=== PATIENT | male | born 1965 | race Caucasian/White ===

== ENCOUNTER 2016-08-09 14:22 | Inpatient (IN) | payer OTHER ==
[2016-08-09 14:48] VITALS: BMI 31.9
--- NOTE | 2016-08-09 17:15 | HP ---
CIWA Score - CIWA Score Nausea/Vomitin Muscle Tremors: 4-Moderate,w/Arms Extend Anxiety: 4-Mod. Anxious/Guarded Agitation: 4-Moderately Restless Paroxysmal Sweats: 1-Minimal Palms Moist Orientation: 3-Disoriented Date>2 days Tacttile Disturbances: 0-None Auditory Disturbances: 0-None Visual Disturbances: 0-None Headache: 0-None Present CIWA-Ar Total Score: 18 Admission ROS BHS - HPI Chief Complaint: withdrawal sx Allergies/Adverse Reactions: Allergies Allergy/AdvReac Type Severity Reaction Status Date / Time No Known Allergies Allergy Verified 08/09/16 15:51 History of Present Illness: 50 years old male with long history of alcohol dependence has hypertension hypercholesterolemia and hypothyroid, denies psychiatric issue is admitted to detox Exam Limitations: No Limitations - Ebola screening Have you traveled outside of the country in the last 21 days: No Have you had contact with anyone from an Ebola affected area: No Have you been sick,other than usual withdrawal symptoms: No Do you have a fever: No - Review of Systems Constitutional: Chills, Changes in sleep, Weight Stable EENT: reports: No Symptoms Reported Respiratory: reports: No Symptoms reported Cardiac: reports: No Symptoms Reported GI: reports: Nausea, Poor Fluid Intake, Vomiting, Indigestion, Abdominal cramping : reports: No Symptoms Reported Musculoskeletal: reports: No Symptoms Reported Integumentary: reports: No Symptoms Reported Neuro: reports: Tremors Endocrine: reports: Unexplained Weight Gain Hematology: reports: No Symptoms Reported Psychiatric: reports: Judgement Intact, Mood/Affect Appropiate, Orientated x3 Other Systems: Reviewed and Negative Patient History - Patient Medical History Hx Anemia: No Hx Asthma: No Hx Chronic Obstructive Pulmonary Disease (COPD): No Hx Cancer: No Hx Cardiac Disorders: No Hx Congestive Heart Failure: No Hx Hypertension: Yes (on meds) Hx Hypercholesterolemia: Yes Hx Pacemaker: No HX Cerebrovascular Accident: No Hx Seizures: No Hx Dementia: No Hx Diabetes: Yes (borderline) Hx Gastrointestinal Disorders: No Hx Liver Disease: No Hx Genitourinary Disorders: No Hx Sexually Transmitted Disorders: No Hx Renal Disease (ESRD): No Hx Thyroid Disease: No Hx Human Immunodeficiency Virus (HIV): No Hx Hepatitis C: No Hx Depression: Yes Hx Suicide Attempt: No Hx Bipolar Disorder: No Hx Schizophrenia: No - Patient Surgical History Past Surgical History: No Hx Neurologic Surgery: No Hx Cataract Extraction: No Hx Cardiac Surgery: No Hx Lung Surgery: No Hx Breast Surgery: No Hx Breast Biopsy: No Hx Abdominal Surgery: No Hx Appendectomy: No Hx Cholecystectomy: No Hx Genitourinary Surgery: No Hx Orthopedic Surgery: No - PPD History Previous Implant?: Yes Documented Results: Positive w/o proof Implanted On Prior R Admission?: No PPD to be Administered?: No - Smoking Cessation Smoking history: Never smoked Have you smoked in the past 12 months: No Hx Chewing Tobacco Use: No Initiated information on smoking cessation: No - Substance & Tx. History Hx Alcohol Use: Yes Hx Substance Use: No Substance Use Type: Alcohol Hx Substance Use Treatment: Yes - Substances Abused Alcohol Route: Oral Frequency: Daily Amount used: vodka 5pts 10beers Age of first use: 19 Date of Last Use: 08/09/16 Family Disease History - Family Disease History Family Disease History: Heart Disease: Mother, Other: Father (no contact) Admission Physical Exam S - Vital Signs Vital Signs: Vital Signs - 24 hr 08/09/16 14:46 Temperature 98.6 F Pulse Rate 71 Respiratory 18 Rate Blood Pressure 137/99 - Physical General Appearance: Yes: Nourished, Appropriately Dressed, Moderate Distress, Alcohol on Breath, Tremorous, Irritable, Sweating, Anxious HEENTM: Yes: Hearing grossly Normal, Normal ENT Inspection, Normocephalic, Normal Voice Respiratory: Yes: Chest Non-Tender, Lungs Clear, Normal Breath Sounds, No Respiratory Distress, No Accessory Muscle Use Neck: Yes: Supple, Trachea in good position Breast: Yes: Breasts Symetrical Cardiology: Yes: Regular Rhythm, Regular Rate, S1, S2 Abdominal: Yes: Non Tender, Soft Genitourinary: Yes: Within Normal Limits Back: Yes: Normal Inspection Musculoskeletal: Yes: full range of Motion, Gait Steady Extremities: Yes: Normal Inspection, Normal Range of Motion, Non-Tender, Tremors Neurological: Yes: Alert, Motor Strength 5/5, Normal Mood/Affect, Normal Response Integumentary: Yes: Warm Lymphatic: Yes: Within Normal Limits - Diagnostic (1) Alcohol dependence with uncomplicated withdrawal Current Visit: Yes Status: Acute (2) Hypertension Current Visit: Yes Status: Acute Qualifiers: Hypertension type: essential hypertension Qualified Code(s): I10 - Essential (primary) hypertension (3) Hypercholesteremia Current Visit: Yes Status: Acute (4) Hypothyroidism Current Visit: Yes Status: Acute Qualifiers: Hypothyroidism type: acquired Qualified Code(s): E03.9 - Hypothyroidism, unspecified (5) Positive PPD, treated Current Visit: Yes Status: Resolved Comment: chest x ray pending Cleared for Admission [facility] - Detox or Rehab [facility] Level of Care: Medically Managed Detox Regimen/Protocol: Librium [facility] Breath Alcohol Content Breath Alcohol Content: 0.266 Urine Drug Screen - Control Is Test Valid: Yes - Results Drug Screen Negative: Yes
[2016-08-09] MEDS ORDERED: IBUPROFEN 400 MG TABLET (FP) PO PRN (17:20)
[2016-08-09] MEDS ORDERED: MAGNESIUM CITRATE 300 ML BOTTLE PO PRN (17:20)
[2016-08-09] MEDS ORDERED: hydrOXYzine PAMOATE 50 MG CAPSULE (FP) PO PRN (17:20)
[2016-08-09] MEDS ORDERED: ACETAMINOPHEN 325 MG TABLET (FP) PO PRN (17:20)
[2016-08-09] MEDS ORDERED: P-EPHED 60MG/TRIPROLIDI 2.5MG TABLET PO PRN (17:20)
[2016-08-09] MEDS ORDERED: guaiFENesin/D-METHORPHAN HB 10 ML UNIT-DOSE CUPS PO PRN (17:20)
[2016-08-09] MEDS ORDERED: chlordiazePOXIDE HCL 25 MG CAPSULE PO PRN (17:20)
[2016-08-09] MEDS ORDERED: MENTHOL/PHENOL 1 EACH UD MM PRN (17:20)
[2016-08-09] MEDS ORDERED: LOPERAMIDE HCL 2 MG CAPSULE PO PRN (17:20)
[2016-08-09] MEDS ORDERED: MAGNESIUM HYDROX 2400MG/30ML ORAL SUSPENSION 30 ML CUP PO PRN (17:20)
[2016-08-09] MEDS ORDERED: chlordiazePOXIDE HCL 25 MG CAPSULE PO ONE (17:45)
[2016-08-09] MEDS: THIAMINE HCL 100 MG TABLET (FP) PO SCH (22:23)
[2016-08-09] MEDS: chlordiazePOXIDE HCL 25 MG CAPSULE PO SCH (22:24)
[2016-08-09] MEDS: ATORVASTATIN CA 20 MG TABLET (FP) PO SCH (22:24)
[2016-08-09 23:08] LABS: URINE APPEARANCE CLEAR; URINE BILIRUBIN NEGATIVE (NEGATIVE); URINE COLOR STRAW; URINE GLUCOSE (UA) NEGATIVE (NEGATIVE); URINE KETONE NEGATIVE (NEGATIVE); URINE LEUK ESTERASE NEGATIVE (NEGATIVE); URINE NITRITE NEGATIVE (NEGATIVE); URINE PROTEIN NEGATIVE (NEGATIVE); URINE UROBILINOGEN NEGATIVE E.U./dl (0.2-1.0)
[2016-08-09 23:15] LABS: URINE BLOOD 1+ (NEGATIVE)
[2016-08-09 23:18] LABS: URINE BACTERIA RARE /hpf (NONE SEEN); URINE MUCUS RARE; URINE RBC <1 /hpf (0-3); URINE WBC <1 /hpf (3-5)
[2016-08-10] MEDS ORDERED: LEVOTHYROXINE NA 25 MCG TABLET (FP) ONE (05:05)
[2016-08-10] MEDS ORDERED: LEVOTHYROXINE NA 100 MCG TABLET (FP) ONE (05:05)
[2016-08-10] MEDS: chlordiazePOXIDE HCL 25 MG CAPSULE PO SCH ×4 (06:17→22:22)
[2016-08-10] MEDS: LEVOTHYROXINE 100 MCG, LEVOTHYROXINE 50 MCG PO SCH (06:17)
[2016-08-10] MEDS ORDERED: LEVOTHYROXINE NA 150 MCG TABLET PO SCH (07:00)
[2016-08-10 10:21] LABS: MCH 30.9 pg (25.7-33.7); MCHC 33.8 g/dl (32.0-35.9); MEAN CELL VOLUME 91.4 fl (80-96); MEAN PLT VOLUME 9.8 fl (7.5-11.1); PLATELET COUNT 123 K/MM3 (134-434); RDW 12.6 % (11.9-15.9); WHITE BLOOD COUNT 4.3 K/mm3 (4.0-10.0)
[2016-08-10] MEDS: PRENATAL VITAMINS W/ FOLIC ACID TABLET (FP) PO SCH (10:36)
[2016-08-10] MEDS: HYDROCHLOROTHIAZIDE 12.5 MG CAPSULE (FP) PO SCH (10:36)
[2016-08-10 10:46] LABS: ALBUMIN 4.2 g/dl (3.4-5.0); ALK PHOS 56 U/L (45-117); ANION GAP 10 (8-16); BILIRUBIN,TOTAL 0.9 mg/dL (0.2-1.0); CALCIUM 8.6 mg/dL (8.5-10.1); CO2 28 mmol/L (21-32); CREATININE 0.7 mg/dL (0.7-1.3); GLUCOSE,RANDOM 114 mg/dL (74-106); SGOT/AST 49 U/L (15-37); SGPT/ALT 46 U/L (12-78); TOT PROT 8.1 g/dl (6.4-8.2)
--- NOTE | 2016-08-10 11:26 | PN ---
S CIWA - CIWA Score Nausea/Vomitin-No Nausea/No Vomiting Muscle Tremors: 3 Anxiety: 3 Agitation: 4-Moderately Restless Paroxysmal Sweats: 3 Orientation: 0-Oriented Tacttile Disturbances: 0-None Auditory Disturbances: 0-None Visual Disturbances: 0-None Headache: 0-None Present CIWA-Ar Total Score: 13 BHS Progress Note (SOAP) Subjective: ANXIETY,TREMORS,SWEATING,INTERRUPTED SLEEP,RESTLESS Objective: 08/10/16 11:24 Vital Signs - 8 hr 08/10/16 08/10/16 06:30 09:46 Temperature 96.4 F L 98.1 F Pulse Rate 64 107 H Respiratory 18 18 Rate Blood Pressure 128/78 143/88 Laboratory Tests 08/09/16 08/09/16 08/10/16 16:13 22:19 06:00 WBC 4.3 RBC 4.95 Hgb 15.3 Hct 45.2 MCV 91.4 MCHC 33.8 RDW 12.6 Plt Count 123 L MPV 9.8 Sodium Potassium Chloride Carbon Dioxide Anion Gap BUN Creatinine Creat Clearance w eGFR POC Glucometer 118 Random Glucose Calcium Total Bilirubin AST ALT Alkaline Phosphatase Total Protein Albumin TSH Urine Color Straw Urine Appearance Clear Urine pH 6.0 Ur Specific [place] 1.006 Urine Protein Negative Urine Glucose (UA) Negative Urine Ketones Negative Urine Blood 1+ H Urine Nitrite Negative Urine Bilirubin Negative Urine Urobilinogen Negative Ur Leukocyte Esterase Negative Urine RBC <1 Urine WBC <1 Ur Epithelial Cells Rare Urine Bacteria Rare Urine Mucus Rare 08/10/16 08/10/16 06:00 06:20 WBC RBC Hgb Hct MCV MCHC RDW Plt Count MPV Sodium 140 Potassium 3.9 Chloride 102 Carbon Dioxide 28 Anion Gap 10 BUN 8 Creatinine 0.7 Creat Clearance w eGFR > 60 POC Glucometer 102 Random Glucose 114 H Calcium 8.6 Total Bilirubin 0.9 AST 49 H ALT 46 Alkaline Phosphatase 56 Total Protein 8.1 Albumin 4.2 TSH 69.40 H Urine Color Urine Appearance Urine pH Ur Specific [place] Urine Protein Urine Glucose (UA) Urine Ketones Urine Blood Urine Nitrite Urine Bilirubin Urine Urobilinogen Ur Leukocyte Esterase Urine RBC Urine WBC Ur Epithelial Cells Urine Bacteria Urine Mucus LABS NOTED,TSH HIGH BECAUSE PT. IS NON-COMPLIANT WITH MEDS. Assessment: 08/10/16 11:25 WITHDRAWAL SX HYPOTHYROIDISM Plan: CONTINUE DETOX
[2016-08-10] MEDS: MAG HYDROX/AL HYDROX/SIMETH 30 ML UNIT-DOSE CUP PO PRN ×2 (13:59→21:03)
--- NOTE | 2016-08-10 15:39 | CONSULT ---
[facility] Psychiatric Consult - Data Date of interview: 08/10/16 Admission source: [facility] Identifying data: This is 50 years old finn[place] talking male with no psychiatric hospitalization history intoxicated with : Alcohol Substance Abuse History: - Smoking Cessation. Smoking history: Never smoked. Have you smoked in the past 12 months: No. Hx Chewing Tobacco Use: No. Initiated information on smoking cessation: No. - Substance & Tx. History. Hx Alcohol Use: Yes. Hx Substance Use: No. Substance Use Type: Alcohol. Hx Substance Use Treatment: Yes. - Substances Abused. Alcohol. Route: Oral. Frequency: Daily. Amount used: vodka 5pts 10beers. Age of first use: 19. Date of Last Use: 08/09/16 Medical History: Chest pain history, HTN, PPD+ History, Psychiatric History: Denies past pscyhiatric history, reports depression and anxiety after Alcohol intake Physical/Sexual Abuse/Trauma History: Denies Additional Comment: Observation. Detox Unit Care Protocol Mental Status Exam - Mental Status Exam Alert and Oriented to: Person Cognitive Function: Fair Patient Appearance: Unkempt Mood: Sad, Anxious Affect: Flat Patient Behavior: Sedated Speech Pattern: Delayed Voice Loudness: Mildly Soft/Quiet Thought Process: Circumstantial Thought Disorder: Being Controlled Hallucinations: Denies Suicidal Ideation: Denies Homicidal Ideation: Denies Insight/Judgement: Fair Sleep: Difficulty falling asleep Appetite: Weight gain Muscle strength/Tone: Normal Gait/Station: Normal Additional Comments: Observation. Detox Unit Care Protocol Psychiatric Findings - Problem List ([place] 1, 2,3) (1) Alcohol dependence with uncomplicated withdrawal Current Visit: Yes Status: Acute (2) Alcohol abuse Current Visit: No Status: Acute (3) Alcohol-induced anxiety disorder Current Visit: Yes Status: Acute (4) Alcohol-induced mood disorder Current Visit: Yes Status: Suspected - Initial Treatment Plan Initial Treatment Plan: Observation. Detox Unit Care Protocol
[2016-08-10 19:44] LABS: HIV 1 & 2 AB NEGATIVE; HIV 1 AGp24 NEGATIVE
[2016-08-10] MEDS: THIAMINE HCL 100 MG TABLET (FP) PO SCH (22:22)
[2016-08-10] MEDS: ATORVASTATIN CA 20 MG TABLET (FP) PO SCH (22:22)
[2016-08-10] MEDS: diphenhydrAMINE HCL 50 MG CAPSULE PO PRN (22:22)
[2016-08-11] MEDS: chlordiazePOXIDE HCL 25 MG CAPSULE PO SCH ×3 (06:11→17:01)
[2016-08-11] MEDS ORDERED: LEVOTHYROXINE NA 25 MCG TABLET (FP) ONE (07:59)
[2016-08-11] MEDS ORDERED: LEVOTHYROXINE NA 100 MCG TABLET (FP) ONE (07:59)
[2016-08-11] MEDS: LEVOTHYROXINE 100 MCG, LEVOTHYROXINE 50 MCG PO SCH (08:01)
[2016-08-11] MEDS: MAG HYDROX/AL HYDROX/SIMETH 30 ML UNIT-DOSE CUP PO PRN ×2 (09:38→17:52)
[2016-08-11] MEDS: HYDROCHLOROTHIAZIDE 12.5 MG CAPSULE (FP) PO SCH (10:36)
[2016-08-11] MEDS: PRENATAL VITAMINS W/ FOLIC ACID TABLET (FP) PO SCH (10:36)
--- NOTE | 2016-08-11 14:57 | PN ---
[facility] CIWA - CIWA Score Nausea/Vomitin-No Nausea/No Vomiting Muscle Tremors: 3 Anxiety: 3 Agitation: 2 Paroxysmal Sweats: 2 Orientation: 0-Oriented Tacttile Disturbances: 0-None Auditory Disturbances: 0-None Visual Disturbances: 0-None Headache: 0-None Present CIWA-Ar Total Score: 10 [facility] Progress Note (SOAP) Subjective: ANXIETY,SWEATING,INTERRUPTED SLEEP,RESTLESS Objective: 08/11/16 14:51 Vital Signs - 8 hr 08/11/16 09:40 Temperature 96.4 F L Pulse Rate 65 Respiratory 18 Rate Blood Pressure 151/89 Laboratory Tests 08/09/16 08/09/16 08/09/16 10:20 16:13 22:19 WBC RBC Hgb Hct MCV MCHC RDW Plt Count MPV Sodium Potassium Chloride Carbon Dioxide Anion Gap BUN Creatinine Creat Clearance w eGFR POC Glucometer 118 Random Glucose Calcium Total Bilirubin AST ALT Alkaline Phosphatase Total Protein Albumin TSH Urine Color Straw Urine Appearance Clear Urine pH 6.0 Ur Specific [place] 1.006 Urine Protein Negative Urine Glucose (UA) Negative Urine Ketones Negative Urine Blood 1+ H Urine Nitrite Negative Urine Bilirubin Negative Urine Urobilinogen Negative Ur Leukocyte Esterase Negative Urine RBC <1 Urine WBC <1 Ur Epithelial Cells Rare Urine Bacteria Rare Urine Mucus Rare RPR Titer HIV 1&2 Antibody Screen Negative HIV P24 Antigen Negative 08/10/16 08/10/16 08/10/16 06:00 06:00 06:00 WBC 4.3 RBC 4.95 Hgb 15.3 Hct 45.2 MCV 91.4 MCHC 33.8 RDW 12.6 Plt Count 123 L MPV 9.8 Sodium 140 Potassium 3.9 Chloride 102 Carbon Dioxide 28 Anion Gap 10 BUN 8 Creatinine 0.7 Creat Clearance w eGFR > 60 POC Glucometer Random Glucose 114 H Calcium 8.6 Total Bilirubin 0.9 AST 49 H ALT 46 Alkaline Phosphatase 56 Total Protein 8.1 Albumin 4.2 TSH 69.40 H Urine Color Urine Appearance Urine pH Ur Specific [place] Urine Protein Urine Glucose (UA) Urine Ketones Urine Blood Urine Nitrite Urine Bilirubin Urine Urobilinogen Ur Leukocyte Esterase Urine RBC Urine WBC Ur Epithelial Cells Urine Bacteria Urine Mucus RPR Titer Nonreactive HIV 1&2 Antibody Screen HIV P24 Antigen 08/10/16 08/11/16 06:20 06:10 WBC RBC Hgb Hct MCV MCHC RDW Plt Count MPV Sodium Potassium Chloride Carbon Dioxide Anion Gap BUN Creatinine Creat Clearance w eGFR POC Glucometer 102 97 Random Glucose Calcium Total Bilirubin AST ALT Alkaline Phosphatase Total Protein Albumin TSH Urine Color Urine Appearance Urine pH Ur Specific [place] Urine Protein Urine Glucose (UA) Urine Ketones Urine Blood Urine Nitrite Urine Bilirubin Urine Urobilinogen Ur Leukocyte Esterase Urine RBC Urine WBC Ur Epithelial Cells Urine Bacteria Urine Mucus RPR Titer HIV 1&2 Antibody Screen HIV P24 Antigen LABS NOTED Assessment: 08/11/16 14:51 WITHDRAWAL SX. Plan: CONTINUE DETOX
[2016-08-11] MEDS: chlordiazePOXIDE 5 MG CAPSULE PO SCH (22:11)
[2016-08-11] MEDS: THIAMINE HCL 100 MG TABLET (FP) PO SCH (22:11)
[2016-08-11] MEDS: ATORVASTATIN CA 20 MG TABLET (FP) PO SCH (22:11)
[2016-08-11] MEDS: diphenhydrAMINE HCL 50 MG CAPSULE PO PRN (22:12)
[2016-08-12] MEDS: chlordiazePOXIDE 5 MG CAPSULE PO SCH (05:58)
[2016-08-12] MEDS ORDERED: LEVOTHYROXINE NA 25 MCG TABLET (FP) ONE (06:00)
[2016-08-12] MEDS ORDERED: LEVOTHYROXINE NA 100 MCG TABLET (FP) ONE (06:00)
[2016-08-12] MEDS: LEVOTHYROXINE 100 MCG, LEVOTHYROXINE 50 MCG PO SCH (06:04)
[2016-08-12 06:33] VITALS: BP 140/87; PULSE 60; TEMP 96.1
--- NOTE | 2016-08-12 11:26 | DS ---
[facility] Detox Discharge Summary Admission Date: 08/09/16 Discharge Date: 08/12/16 - History Present History: Alcohol Dependence Pertinent Past History: Hypertension Hyperlipidemia Hypothyroid - Physical Exam Results Vital Signs: Vital Signs Temperature 96.1 F L 08/12/16 06:33 Pulse Rate 60 08/12/16 06:33 Respiratory Rate 18 08/12/16 06:33 Blood Pressure 140/87 08/12/16 06:33 O2 Sat by Pulse Oximetry (%) Pertinent Admission Physical Exam Findings: withdrawal symptoms Laboratory Last Values WBC 4.3 K/mm3 (4.0-10.0) 08/10/16 06:00 RBC 4.95 M/mm3 (4.00-5.60) 08/10/16 06:00 Hgb 15.3 GM/dL (11.7-16.9) 08/10/16 06:00 Hct 45.2 % (35.4-49) 08/10/16 06:00 MCV 91.4 fl (80-96) 08/10/16 06:00 MCHC 33.8 g/dl (32.0-35.9) 08/10/16 06:00 RDW 12.6 % (11.9-15.9) 08/10/16 06:00 Plt Count 123 K/MM3 (134-434) L 08/10/16 06:00 MPV 9.8 fl (7.5-11.1) 08/10/16 06:00 Sodium 140 mmol/L (136-145) 08/10/16 06:00 Potassium 3.9 mmol/L (3.5-5.1) 08/10/16 06:00 Chloride 102 mmol/L (98-107) 08/10/16 06:00 Carbon Dioxide 28 mmol/L (21-32) 08/10/16 06:00 Anion Gap 10 (8-16) 08/10/16 06:00 BUN 8 mg/dL (7-18) 08/10/16 06:00 Creatinine 0.7 mg/dL (0.7-1.3) 08/10/16 06:00 Creat Clearance w eGFR > 60 (>60) 08/10/16 06:00 POC Glucometer 104 UNITS (()) 08/12/16 05:58 Random Glucose 114 mg/dL (74-106) H 08/10/16 06:00 Calcium 8.6 mg/dL (8.5-10.1) 08/10/16 06:00 Total Bilirubin 0.9 mg/dL (0.2-1.0) 08/10/16 06:00 AST 49 U/L (15-37) H 08/10/16 06:00 ALT 46 U/L (12-78) 08/10/16 06:00 Alkaline Phosphatase 56 U/L (45-117) 08/10/16 06:00 Total Protein 8.1 g/dl (6.4-8.2) 08/10/16 06:00 Albumin 4.2 g/dl (3.4-5.0) 08/10/16 06:00 TSH 69.40 uIU/ml (0.358-3.74) H 08/10/16 06:00 Urine Color Straw 08/09/16 22:19 Urine Appearance Clear 08/09/16 22:19 Urine pH 6.0 (5.0-8.0) 08/09/16 22:19 Ur Specific [place] 1.006 (1.001-1.035) 08/09/16 22:19 Urine Protein Negative (NEGATIVE) 08/09/16 22:19 Urine Glucose (UA) Negative (NEGATIVE) 08/09/16 22:19 Urine Ketones Negative (NEGATIVE) 08/09/16 22:19 Urine Blood 1+ (NEGATIVE) H 08/09/16 22:19 Urine Nitrite Negative (NEGATIVE) 08/09/16 22:19 Urine Bilirubin Negative (NEGATIVE) 08/09/16 22:19 Urine Urobilinogen Negative E.U./dl (0.2-1.0) 08/09/16 22:19 Ur Leukocyte Esterase Negative (NEGATIVE) 08/09/16 22:19 Urine RBC <1 /hpf (0-3) 08/09/16 22:19 Urine WBC <1 /hpf (3-5) 08/09/16 22:19 Ur Epithelial Cells Rare /hpf (FEW) 08/09/16 22:19 Urine Bacteria Rare /hpf (NONE SEEN) 08/09/16 22:19 Urine Mucus Rare 08/09/16 22:19 RPR Titer Nonreactive (NONREACTIVE) 08/10/16 06:00 HIV 1&2 Antibody Screen Negative 08/09/16 10:20 HIV P24 Antigen Negative 08/09/16 10:20 labs review - Medication Discharge Medications: Ambulatory Orders Hydrochlorothiazide [Hctz -] 12.5 mg PO DAILY 04/01/16 Levothyroxine [Synthroid -] 150 mcg PO DAILY 04/01/16 Simvastatin [Zocor -] 20 mg PO HS 04/01/16 - Diagnosis (1) Alcohol dependence with uncomplicated withdrawal Status: Acute (2) Alcohol-induced anxiety disorder Status: Acute (3) Hypercholesteremia Status: Acute (4) Hypertension Status: Chronic Qualifiers: Hypertension type: essential hypertension Qualified Code(s): I10 - Essential (primary) hypertension (5) Hypothyroidism Status: Acute Qualifiers: Hypothyroidism type: acquired Qualified Code(s): E03.9 - Hypothyroidism, unspecified (6) Alcohol-induced mood disorder Status: Suspected - AMA Did Patient Leave Against Medical Advice: Yes
[2016-08-12] MEDS ORDERED: chlordiazePOXIDE HCL 10 MG CAPSULE PO SCH (23:00)
== END 2016-08-12 09:52 | disposition left against medical advice (07) | DRG 770 ==
LOC: YASAS 14:22 → Y3N 16:28
PROVIDERS: ADMIT Internal Medicine; ATTEND Internal Medicine
PROC: HZ2ZZZZ Detoxification Services for Substance Abuse Treatment (ICD-10-PCS; principal; 2016-08-09)
DX: F10.230 Alcohol dependence with withdrawal, uncomplicated (principal); F10.24 Alcohol dependence with alcohol-induced mood disorder; F10.280 Alcohol dependence with alcohol-induced anxiety disorder; I10 Essential (primary) hypertension; E03.9 Hypothyroidism, unspecified; E78.00 Pure hypercholesterolemia, unspecified; R73.03 Prediabetes; R76.11 Nonspecific reaction to tuberculin skin test without active tuberculosis
CPT/HCPCS: 36415; 71020-TC; 80053; 81003; 81015; 84443; 85027; 86593; 87389; 93005; 93010

== ENCOUNTER 2023-03-13 21:02 | Observation (INO) | payer OTHER ==
[2023-03-13 22:58] LABS: BASO % 1.1 % (0-2.0); EOS % 5.7 % (0-4.5); HEMATOCRIT 41.8 % (35.4-49); HEMOGLOBIN 14.5 GM/dL (11.7-16.9); LYMPH % 42.2 % (8-40); MCH 30.7 pg (25.7-33.7); MCHC 34.7 g/dl (32.0-35.9); MEAN CELL VOLUME 88.5 fl (80-96); MEAN PLT VOLUME 8.4 fl (7.5-11.1); PLATELET COUNT 143 10^3/uL (134-434); RBC 4.72 M/mm3 (4.00-5.60); RDW 13.5 % (11.9-15.9); WHITE BLOOD COUNT 6.2 K/mm3 (4.0-10.0)
[2023-03-13 23:24] LABS: BLOOD UREA NITROGEN 4.8 mg/dL (7-18); CALCIUM 8.8 mg/dL (8.5-10.1)
[2023-03-13 23:28] LABS: CREATININE 0.8 mg/dL (0.55-1.3)
[2023-03-13 23:29] LABS: BILIRUBIN,TOTAL 0.5 mg/dL (0.2-1)
[2023-03-14 01:03] LABS: INR 0.96 (0.83-1.09); PROTHROMBIN TIME (PATIENT) 11.1 SEC (9.7-13.0)
[2023-03-14] MEDS ORDERED: ACETAMINOPHEN INJECTION 100 ML IVPB ONE (05:08)
[2023-03-14] MEDS ORDERED: ACETAMINOPHEN 1000 MG/100 ML BAG IVPB ONE (05:08)
[2023-03-14] MEDS ORDERED: DOCUSATE SODIUM 100 MG CAPSULE (FP) PO PRN (10:14)
[2023-03-14] MEDS ORDERED: LORazepam 2 MG/ML SDV VIAL IVPB PRN (10:19)
[2023-03-14] MEDS ORDERED: ACETAMINOPHEN 1000 MG/100 ML BAG IVPB PRN (10:23)
[2023-03-14] MEDS: FOLIC ACID 1 MG TABLET (FP) PO SCH (11:39)
[2023-03-14] MEDS: THIAMINE HCL 100 MG TABLET (FP) PO SCH (11:39)
[2023-03-14] MEDS: MULTIVITAMINS (DAILY MVI) TABLET (FP) PO SCH (11:39)
[2023-03-14 18:31] VITALS: BMI 29.7
[2023-03-15 08:58] LABS: HEMATOCRIT 40.3 % (35.4-49); HEMOGLOBIN 13.7 GM/dL (11.7-16.9); MCH 30.8 pg (25.7-33.7); MEAN CELL VOLUME 90.4 fl (80-96); MEAN PLT VOLUME 9.2 fl (7.5-11.1); PLATELET COUNT 124 10^3/uL (134-434); RBC 4.45 M/mm3 (4.00-5.60); RDW 13.7 % (11.9-15.9); WHITE BLOOD COUNT 5.9 K/mm3 (4.0-10.0)
[2023-03-15 09:37] LABS: CALCIUM 9.3 mg/dL (8.5-10.1)
[2023-03-15 09:38] LABS: MAGNESIUM 2.3 mg/dL (1.8-2.4)
[2023-03-15 09:41] LABS: CREATININE 0.9 mg/dL (0.55-1.3)
[2023-03-15] MEDS: MULTIVITAMINS (DAILY MVI) TABLET (FP) PO SCH (09:42)
[2023-03-15] MEDS: FOLIC ACID 1 MG TABLET (FP) PO SCH (09:42)
[2023-03-15] MEDS: THIAMINE HCL 100 MG TABLET (FP) PO SCH (09:42)
[2023-03-15] MEDS ORDERED: ACETAMINOPHEN 325 MG TABLET (FP) PO PRN (10:14)
[2023-03-15 20:58] LABS: EPI CELLS 1 /uL (0-25.1); HYALINE CASTS 0 /uL (0-3.1); PH,URINE 6.5 (5.0-8.0); URINE APPEARANCE CLEAR; URINE BACTERIA 0 /uL (0-1359); URINE BILIRUBIN NEGATIVE (NEGATIVE); URINE COLOR YELLOW; URINE GLUCOSE (UA) NEGATIVE (NEGATIVE); URINE KETONE NEGATIVE (NEGATIVE); URINE LEUK ESTERASE NEGATIVE (NEGATIVE); URINE NITRITE NEGATIVE (NEGATIVE); URINE PROTEIN NEGATIVE (NEGATIVE); URINE RBC 12 /uL (0-23.9); URINE UROBILINOGEN 0.2 mg/dL (0.2-1.0); URINE WBC 0 /uL (0-25.8)
[2023-03-15 20:59] LABS: COCAINE, UR NEGATIVE (NEGATIVE); URINE AMPHETAMINES NEGATIVE (NEGATIVE)
[2023-03-15 21:01] LABS: OPIATES, URI NEGATIVE (NEGATIVE); PHENCYCLIDINE,URINE NEGATIVE (NEGATIVE); URINE BARBITURATES NEGATIVE (NEGATIVE); URINE BENZODIAZEPINES NEGATIVE (NEGATIVE)
[2023-03-15 21:05] LABS: METHADONE, UR NEGATIVE (NEGATIVE)
[2023-03-16] MEDS: MULTIVITAMINS (DAILY MVI) TABLET (FP) PO SCH (09:28)
[2023-03-16] MEDS: THIAMINE HCL 100 MG TABLET (FP) PO SCH (09:28)
[2023-03-16] MEDS: FOLIC ACID 1 MG TABLET (FP) PO SCH (09:28)
[2023-03-17] MEDS: THIAMINE HCL 100 MG TABLET (FP) PO SCH (09:24)
[2023-03-17] MEDS: MULTIVITAMINS (DAILY MVI) TABLET (FP) PO SCH (09:25)
[2023-03-17] MEDS: FOLIC ACID 1 MG TABLET (FP) PO SCH (09:25)
[2023-03-18] MEDS: LEVOTHYROXINE NA 150 MCG TABLET PO SCH (08:36)
[2023-03-18] MEDS: MULTIVITAMINS (DAILY MVI) TABLET (FP) PO SCH (09:07)
[2023-03-18] MEDS: FOLIC ACID 1 MG TABLET (FP) PO SCH (09:07)
[2023-03-18] MEDS: THIAMINE HCL 100 MG TABLET (FP) PO SCH (09:07)
[2023-03-18] MEDS: methylPREDNISolone 4 MG TABLET PO SCH ×2 (17:06→21:21)
[2023-03-19] MEDS: MULTIVITAMINS (DAILY MVI) TABLET (FP) PO SCH (09:12)
[2023-03-19] MEDS: FOLIC ACID 1 MG TABLET (FP) PO SCH (09:12)
[2023-03-19] MEDS: LEVOTHYROXINE NA 150 MCG TABLET PO SCH (09:12)
[2023-03-19] MEDS: THIAMINE HCL 100 MG TABLET (FP) PO SCH (09:12)
[2023-03-19] MEDS: methylPREDNISolone 4 MG TABLET PO SCH ×2 (09:12→14:08)
[2023-03-19 09:20] VITALS: BP 134/78; PULSE 61; RESP 15; TEMP 98.6
== END 2023-03-19 14:33 | disposition home or self-care (01) ==
LOC: JERFT 21:02 → UNDOADMOB 03-14 02:24 → INTOOBSV 03-14 02:24 → JERBED 03-14 02:24 → J8W 03-14 17:59
PROVIDERS: ADMIT Internal Medicine; ATTEND Family Medicine
PROC: 3E033NZ Introduction of Analgesics, Hypnotics, Sedatives into Peripheral Vein, Percutaneous Approach (ICD-10-PCS; principal; 2023-03-14)
DX: R26.0 Ataxic gait (principal); F10.20 Alcohol dependence, uncomplicated; F41.8 Other specified anxiety disorders; E03.9 Hypothyroidism, unspecified; I10 Essential (primary) hypertension
CPT/HCPCS: 36415; 70450-TC; 72125-TC; 72131-TC; 72141-TC; 72146-TC; 80048; 80053; 80307; 81003; 82607; 83735; 84100; 84443; 85025; 85027; 85610; 86593; 86780; 86850; 86900; 86901; 87086; 93005; 93010; 96374; 96375; 97116-GP; 97161-GP; 99285-25; G0378